=== PATIENT | male | born 2000 | race Caucasian/White ===

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

== ENCOUNTER 2018-01-20 20:47 | Emergency (ER) | payer OTHER ==
[2018-01-20 20:47] VITALS: BMI 19.3
[2018-01-20 20:53] VITALS: BP 118/64; PULSE 72; RESP 18; TEMP 97.1; O2SAT 99
--- NOTE | 2018-01-20 21:04 | ED PDOC ---
HPI: General Adult Time Seen by Provider: 01/20/18 20:56 Chief Complaint (Nursing): Medical Clearance Chief Complaint (Provider): clearance for incarceration History Per: Patient History/Exam Limitations: no limitations Additional Complaint(s): 17 y/o male here in police custody for clearance for incarceration. Patient states he has history of anxiety with panic attacks, which happen mostly at night time, and he is afraid if he goes to prison he wont be able to sleep. Patient has not yet followed up with a psychiatrist, has just been medicating with Advil PM. Denies headache, dizziness, chest pain, shortness of breath, palpitations, suicidal/homicidal ideations, hallucinations, drug/alcohol use. Past Medical History Reviewed: Historical Data, Nursing Documentation, Vital Signs Vital Signs: Last Vital Signs Temp 97.1 F L 01/20/18 20:49 Pulse 72 01/20/18 20:49 Resp 18 01/20/18 20:49 BP 118/64 01/20/18 20:49 Pulse Ox 99 01/20/18 21:04 - Medical History PMH: Anxiety, Depression Denies: Chronic Kidney Disease - Surgical History Other surgeries: facial surgery - Family History Family History: States: Unknown Family Hx - Home Medications Home Medications: Ambulatory Orders Medication Instructions Recorded Ibuprofen [Motrin Tab] 400 mg PO Q6 PRN #14 tab 01/22/17 Amoxicillin/Clavulanate [Augmentin 1 tab PO BID #14 tab 09/11/17 875 MG-125 MG] Naproxen 500 mg PO BID PRN #20 tab 09/11/17 traMADol [Ultram] 50 mg PO Q6 PRN #12 tab 09/11/17 - Allergies Allergies/Adverse Reactions: Allergies Allergy/AdvReac Type Severity Reaction Status Date / Time No Known Allergies Allergy Verified 01/22/17 20:47 Review of Systems ROS Statement: Except As Marked, All Systems Reviewed And Found Negative Physical Exam - Reviewed Nursing Documentation Reviewed: Yes Vital Signs Reviewed: Yes - Physical Exam Appears: Positive for: Well, Non-toxic, No Acute Distress Head Exam: Positive for: ATRAUMATIC, NORMAL INSPECTION, NORMOCEPHALIC Skin: Positive for: Normal Color Eye Exam: Positive for: Normal appearance ENT: Positive for: Normal ENT Inspection Cardiovascular/Chest: Positive for: Regular Rate, Rhythm Respiratory: Positive for: Normal Breath Sounds Gastrointestinal/Abdominal: Positive for: Normal Exam Back: Positive for: Normal Inspection Extremity: Positive for: Normal ROM Neurologic/Psych: Positive for: Alert, Oriented (x3) - ECG O2 Sat by Pulse Oximetry: 99 - Progress ED Course And Treament: Patient evaluated by back up worker and cleared for d/c as per Dr. Marinelli Patient requesting medication to help calm him down/sleep; Hydroxyzine dose ordered Disposition - Clinical Impression Clinical Impression: Adjustment disorder - Patient ED Disposition Is Patient to be Admitted: No Counseled Patient/Family Regarding: Diagnosis, Need For Followup - Disposition Disposition: Discharged/Transfer to Law Enforcement Disposition Time: 21:58 Condition: STABLE Additional Instructions: Patient medically and psychiatrically cleared for incarceration Instructions: Adjustment Disorder
== END 2018-01-20 22:30 ==
LOC: H.ER 20:47
DX: F43.20 Adjustment disorder, unspecified (principal); Z00.8 Encounter for other general examination